=== PATIENT | male | born 1980 | race American Indian/Alaskan Native ===

== ENCOUNTER 2018-07-23 19:48 | Emergency (ER) | payer SELFPAY ==
[2018-07-23 19:51] VITALS: TEMP 97.7
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
[2018-07-23 21:51] VITALS: BP 122/77; PULSE 73; RESP 18; O2SAT 97
== END 2018-07-23 21:50 | disposition home or self-care (01) ==
LOC: H.ER 19:48
DX: S80.212A Abrasion, left knee, initial encounter (principal); V19.9XXA Pedal cyclist (driver) (passenger) injured in unspecified traffic accident, initial encounter; Y93.55 Activity, bike riding